=== PATIENT | male | born 1965 | race Caucasian/White ===

== ENCOUNTER 2020-04-03 17:50 | Emergency (ER) | payer SELFPAY ==
[~2020-04-03 17:50] MED LIST: Iopamidol 370 76% 100 ML VIAL ONE
[2020-04-03 18:13] LABS: #Basophils 0.1 thou/uL (0.0-0.2); #Eosinphils 0.1 thou/uL (0.0-0.7); #Lymphocytes 2.8 thou/uL (1.20-3.40); #Monocytes 0.6 thou/uL (0.11-0.59); #Neutrophils 2.7 thou/uL (1.40-6.50); %Basophils 1.8 % (0.0-1.0); %Lymphocytes 44.1 % (21.0-51.0); %Monocytes 9.8 % (0.0-10.0); %Neutrophils 42.3 % (42.0-75.0); Hemoglobin 14.8 g/dL (14.0-18.0); Mean Corpuscular HGB CONC 32.1 g/dL (32.0-36.0); Mean Corpuscular Hemoglobin 30.6 pg (27.0-31.0); Mean Corpuscular Volume 95.3 fL (78.0-98.0); Platelet Count 266 thou/uL (130-400); RBC Distribution Width 11.6 % (11.5-14.5); Red Blood Cell (RBC) Count 4.86 mill/uL (4.70-6.10); White Blood Cell (WBC) Count 6.3 thou/uL (4.8-10.8)
[2020-04-03 18:28] LABS: ALT (SGPT) 42 U/L (8-55); AST (SGOT) 27 U/L (5-34); Albumin 4.6 g/dL (3.5-5.0); Alkaline Phosphatase 57 U/L (40-110); Anion Gap 17 mmol/L (10-20); BUN (Urea Nitrogen) 26 mg/dL (8.4-25.7); Bilirubin, Total 0.3 mg/dL (0.2-1.2); CK (CPK) 244 U/L (30-200); Calc. Creatinine Clearance 0 mL/min (70-130); Calcium 9.9 mg/dL (7.8-10.44); Carbon Dioxide 20 mmol/L (22-29); Chloride 108 mmol/L (98-107); Estimated GFR-MDRD 47; Globulin 2.8 g/dL (2.4-3.5); Glucose 125 mg/dL (70-105); Potassium 3.6 mmol/L (3.5-5.1); Protein, Total 7.4 g/dL (6.0-8.3); Sodium 141 mmol/L (136-145)
[2020-04-03] MEDS ORDERED: Sodium Chloride 0.9% 1,000 ML ONE (18:38)
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
== END 2020-04-03 21:43 | disposition home or self-care (01) ==
LOC: MADERS 17:50
DX: T23.072A Burn of unspecified degree of left wrist, initial encounter (principal); T22.012A Burn of unspecified degree of left forearm, initial encounter; T22.011A Burn of unspecified degree of right forearm, initial encounter; S20.219A Contusion of unspecified front wall of thorax, initial encounter; E11.9 Type 2 diabetes mellitus without complications; E78.5 Hyperlipidemia, unspecified; I10 Essential (primary) hypertension; Z79.899 Other long term (current) drug therapy; W86.8XXA Exposure to other electric current, initial encounter
CPT/HCPCS: 70450; 71250; 72125; 74177; 80053; 82550; 85025; 93005; J7050; Q9967

== ENCOUNTER 2020-08-30 14:23 | Emergency (ER) | payer SELFPAY ==
[2020-08-30] MEDS ORDERED: Lidocaine 1% w/Epinephrine 1:100K 20 ML VIAL ONE (15:06)
[2020-08-30] MEDS ORDERED: Lidocaine 1% 20 ML MDV ONE (15:06)
[2020-08-30] MEDS ORDERED: Bacitracin 1 PK ONE (15:21)
== END 2020-08-30 15:35 | disposition home or self-care (01) ==
LOC: MADERS 14:23
DX: S61.210A Laceration without foreign body of right index finger without damage to nail, initial encounter (principal); E11.9 Type 2 diabetes mellitus without complications; E78.5 Hyperlipidemia, unspecified; I10 Essential (primary) hypertension; W26.0XXA Contact with knife, initial encounter
CPT/HCPCS: 12001

== ENCOUNTER 2022-10-26 17:45 | Emergency (ER) | payer SELFPAY ==
[2022-10-26] MEDS ORDERED: Morphine 4 MG/ML VIAL ONE (18:45)
[2022-10-26] MEDS ORDERED: Morphine 2 MG/ML VIAL ONE (18:46)
[2022-10-26 18:48] LABS: ALT (SGPT) 27 U/L (8-55); AST (SGOT) 24 U/L (5-34); Albumin 4.2 g/dL (3.5-5.0); Alkaline Phosphatase 47 U/L (40-110); Anion Gap 15 mmol/L (10-20); BUN (Urea Nitrogen) 25 mg/dL (8.4-25.7); Bilirubin, Total 0.2 mg/dL (0.2-1.2); Calc. Creatinine Clearance 0 mL/min (70-130); Calcium 9.3 mg/dL (7.8-10.44); Carbon Dioxide 22 mmol/L (22-29); Chloride 105 mmol/L (98-107); Estimated GFR 78; Globulin 2.8 g/dL (2.4-3.5); Glucose 105 mg/dL (70-105); Sodium 138 mmol/L (136-145)
[2022-10-26 18:53] LABS: #Basophils 0.1 thou/uL (0.0-0.2); #Eosinphils 0.1 thou/uL (0.0-0.7); #Monocytes 0.7 thou/uL (0.11-0.59); #Neutrophils 4.2 thou/uL (1.40-6.50); %Basophils 1.1 % (0.0-1.0); %Eosinophils 1.6 % (0.0-10.0); %Lymphocytes 28.3 % (21.0-51.0); %Monocytes 10.4 % (0.0-10.0); %Neutrophils 58.6 % (42.0-75.0); Hemoglobin 15.4 g/dL (14.0-18.0); Mean Corpuscular HGB CONC 33.6 g/dL (32.0-36.0); Mean Corpuscular Hemoglobin 31.2 pg (27.0-31.0); Mean Corpuscular Volume 92.8 fl (78.0-98.0); Mean Platelet Volume 9.4 fL (7.4-10.4); Platelet Count 225 10x3/uL (130-400); RBC Distribution Width 11.7 % (11.5-14.5); Red Blood Cell (RBC) Count 4.92 mill/uL (4.70-6.10); White Blood Cell (WBC) Count 7.2 10x3/uL (4.8-10.8)
[2022-10-26 19:37] LABS: Bilirubin Negative (Negative); Blood, Urine Negative (Negative); Clarity Clear (Clear); Glucose, Urine (Dipstick) Negative (Negative); Ketone, Urine Negative (Negative); Leukocyte Negative (Negative); Nitrite Negative (Negative); Protein, Urine (Dipstick) Negative (Neg-Trace); Urobilinogen 0.2 mg/dL (Less than 2); pH, Urine 6.5 (5.0-9.0)
== END 2022-10-26 22:00 | disposition home or self-care (01) ==
LOC: MADERS 17:45
DX: M54.50 Low back pain, unspecified (principal); I10 Essential (primary) hypertension; E78.5 Hyperlipidemia, unspecified; E11.40 Type 2 diabetes mellitus with diabetic neuropathy, unspecified; Z79.899 Other long term (current) drug therapy
CPT/HCPCS: 70450; 71260; 72125; 74177; 80053; 81003; 85025; 93005; 96374; J2270; Q9967

== ENCOUNTER 2022-10-30 11:59 | Emergency (ER) | payer SELFPAY ==
[2022-10-30 12:55] LABS: #Basophils 0.1 thou/uL (0.0-0.2); #Eosinphils 0.1 thou/uL (0.0-0.7); #Lymphocytes 1.8 thou/uL (1.20-3.40); #Monocytes 0.7 thou/uL (0.11-0.59); #Neutrophils 2.9 thou/uL (1.40-6.50); %Basophils 1.4 % (0.0-1.0); %Eosinophils 2.4 % (0.0-10.0); %Lymphocytes 31.4 % (21.0-51.0); %Monocytes 12.9 % (0.0-10.0); %Neutrophils 51.9 % (42.0-75.0); Mean Corpuscular HGB CONC 33.9 g/dL (32.0-36.0); Mean Corpuscular Hemoglobin 31.4 pg (27.0-31.0); Mean Corpuscular Volume 92.6 fl (78.0-98.0); Mean Platelet Volume 8.9 fL (7.4-10.4); Platelet Count 261 10x3/uL (130-400); RBC Distribution Width 11.8 % (11.5-14.5); Red Blood Cell (RBC) Count 5.41 mill/uL (4.70-6.10); White Blood Cell (WBC) Count 5.6 10x3/uL (4.8-10.8)
[2022-10-30 13:06] LABS: ALT (SGPT) 24 U/L (8-55); AST (SGOT) 20 U/L (5-34); Albumin 4.5 g/dL (3.5-5.0); Alkaline Phosphatase 51 U/L (40-110); Anion Gap 14 mmol/L (10-20); BUN (Urea Nitrogen) 20 mg/dL (8.4-25.7); Bilirubin, Total 0.4 mg/dL (0.2-1.2); Calc. Creatinine Clearance 0 mL/min (70-130); Calcium 9.8 mg/dL (7.8-10.44); Carbon Dioxide 27 mmol/L (22-29); Chloride 103 mmol/L (98-107); Estimated GFR 79; Globulin 3.2 g/dL (2.4-3.5); Glucose 74 mg/dL (70-105); Lipase 26 U/L (8-78); Potassium 4.5 mmol/L (3.5-5.1); Protein, Total 7.7 g/dL (6.0-8.3); Sodium 139 mmol/L (136-145)
[2022-10-30] MEDS ORDERED: Ketorolac Tromethamine 60 MG/2 ML VIAL ONE (13:25)
[2022-10-30] MEDS ORDERED: Orphenadrine Citrate 60 MG/2 ML VIAL ONE (13:25)
== END 2022-10-30 13:30 | disposition home or self-care (01) ==
LOC: MADERS 11:59
DX: M79.10 Myalgia, unspecified site (principal); I10 Essential (primary) hypertension; E78.5 Hyperlipidemia, unspecified; E11.40 Type 2 diabetes mellitus with diabetic neuropathy, unspecified
CPT/HCPCS: 80053; 83690; 85025; 96372; J1885; J2360

== ENCOUNTER 2022-12-01 17:39 | Emergency (ER) | payer SELFPAY ==
[2022-12-01] MEDS ORDERED: Lidocaine 1% w/Epinephrine 1:100K 30 ML VIAL ONE (18:17)
[2022-12-01] MEDS ORDERED: Bacitracin 1 PK ONE (18:18)
== END 2022-12-01 19:05 | disposition home or self-care (01) ==
LOC: MADERS 17:39
DX: S01.411A Laceration without foreign body of right cheek and temporomandibular area, initial encounter (principal); E78.5 Hyperlipidemia, unspecified; E11.40 Type 2 diabetes mellitus with diabetic neuropathy, unspecified; I10 Essential (primary) hypertension; Z79.899 Other long term (current) drug therapy; W25.XXXA Contact with sharp glass, initial encounter
CPT/HCPCS: 12013

== ENCOUNTER 2023-06-13 10:24 | Emergency (ER) | payer SELFPAY | END 2023-06-13 11:46 | disposition home or self-care (01) | LOC: MADERS 10:24 | DX: L25.5 Unspecified contact dermatitis due to plants, except food (principal); I10 Essential (primary) hypertension; L29.9 Pruritus, unspecified; E11.9 Type 2 diabetes mellitus without complications; E78.5 Hyperlipidemia, unspecified; Z79.899 Other long term (current) drug therapy | CPT/HCPCS: 96372; 99282; J1040 ==

== ENCOUNTER 2024-06-25 18:25 | Emergency (ER) | payer SELFPAY ==
[2024-06-25] MEDS ORDERED: EPINEPHrine 1 MG/ML VIAL ONE (18:28)
[2024-06-25] MEDS ORDERED: diphenhydrAMINE 50 MG/ML VIAL ONE (18:28)
[2024-06-25] MEDS ORDERED: methylPREDNISolone Sod Succ/PF 125 MG/2 ML VIAL ONE (18:29)
[2024-06-25] MEDS ORDERED: Famotidine/PF 20 mg/2ml Vial ONE (18:42)
== END 2024-06-25 21:09 | disposition home or self-care (01) ==
LOC: MADERS 18:25
DX: T63.441A Toxic effect of venom of bees, accidental (unintentional), initial encounter (principal); E11.9 Type 2 diabetes mellitus without complications; I10 Essential (primary) hypertension
CPT/HCPCS: 94760; 96374; 96375; J0171; J1200; J2919; J3490

== ENCOUNTER 2025-07-02 14:06 | Emergency (ER) | payer SELFPAY ==
[2025-07-02 14:53] LABS: #Basophils 0.1 thou/uL (0.0-0.2); #Eosinophils 0.1 thou/uL (0.0-0.7); #Lymphocytes 1.9 thou/uL (1.20-3.40); #Monocytes 1.0 thou/uL (0.11-0.59); #Neutrophils 5.2 thou/uL (1.40-6.50); %Basophils 1.5 % (0.0-1.0); %Eosinophils 1.6 % (0.0-10.0); %Lymphocytes 22.5 % (21.0-51.0); %Monocytes 11.5 % (0.0-10.0); %Neutrophils 62.9 % (42.0-75.0); Hematocrit 44.8 % (42.0-52.0); Hemoglobin 14.7 g/dL (14.0-18.0); Mean Corpuscular Hemoglobin 31.6 pg (27.0-31.0); Mean Corpuscular Volume 96.0 fl (78.0-98.0); Platelet Count 233 10x3/uL (130-400); Red Blood Cell (RBC) Count 4.67 mill/uL (4.70-6.10); White Blood Cell (WBC) Count 8.3 10x3/uL (4.8-10.8)
[2025-07-02 15:09] LABS: Troponin I Less than 0.010 ng/mL (< 0.028)
[2025-07-02 15:31] LABS: ALT (SGPT) 33 U/L (Less than 45); AST (SGOT) 31 U/L (11-34); Albumin 3.9 g/dL (3.1-4.5); Alkaline Phosphatase 50 U/L (40-110); Anion Gap 15 mmol/L (10-20); BUN (Urea Nitrogen) 22 mg/dL (8.4-25.7); Bilirubin, Total 1.0 mg/dL (0.3-1.2); CK (CPK) 169 U/L (30-200); Calc. Creatinine Clearance 0 mL/min (70-130); Calcium 8.9 mg/dL (7.8-10.44); Carbon Dioxide 23 mmol/L (22-29); Chloride 101 mmol/L (98-107); Globulin 2.9 g/dL (2.4-3.5); Glucose 99 mg/dL (70-105); Lipase 19 U/L (8-78); Magnesium 1.9 mg/dL (1.6-2.6); Potassium 4.4 mmol/L (3.5-5.1); Sodium 135 mmol/L (136-145)
[2025-07-02] MEDS ORDERED: Aspirin Chewable 81 MG TAB ONE (15:57)
[2025-07-02] MEDS ORDERED: Orphenadrine Citrate 60 MG/2 ML VIAL ONE (15:57)
== END 2025-07-02 16:47 | disposition home or self-care (01) ==
LOC: MADERS 14:06
DX: T67.5XXA Heat exhaustion, unspecified, initial encounter (principal); G89.29 Other chronic pain; R07.9 Chest pain, unspecified; R00.1 Bradycardia, unspecified; E11.40 Type 2 diabetes mellitus with diabetic neuropathy, unspecified; I10 Essential (primary) hypertension; R29.702 NIHSS score 2; Z79.899 Other long term (current) drug therapy
CPT/HCPCS: 36415; 71045; 80053; 82550; 83690; 83735; 84484; 85025; 85379; 93005; 94760; 96374; J2360; J7120